=== PATIENT | female | born 1990 | race Caucasian/White ===

== ENCOUNTER 2017-02-19 03:03 | Emergency (ER) | payer BC ==
[2017-02-19 03:29] VITALS: TEMP 98.4
--- NOTE | 2017-02-19 04:07 | ED PDOC ---
HPI: Neurologic - General Time Seen by Provider: 02/19/17 03:27 Chief Complaint (Nursing): Dizziness/Lightheaded - History of Present Illness Allergies/Adverse Reactions: Allergies No Known Allergies Allergy (Verified 02/19/17 03:26) Past Medical History Vital Signs: Last Vital Signs Temp 98.4 F 02/19/17 03:27 Pulse 80 02/19/17 03:27 Resp 18 02/19/17 03:27 BP 110/68 02/19/17 03:27 Pulse Ox 100 02/19/17 03:27 - Medical History PMH: Hypothyroidism Denies: Chronic Kidney Disease - Allergies Allergies/Adverse Reactions: Allergies Allergy/AdvReac Type Severity Reaction Status Date / Time No Known Allergies Allergy Verified 02/19/17 03:26 - ECG O2 Sat by Pulse Oximetry: 100
--- NOTE | 2017-02-19 04:09 | ED PDOC ---
HPI: General Adult Time Seen by Provider: 02/19/17 03:27 Chief Complaint (Nursing): Dizziness/Lightheaded Chief Complaint (Provider): Anxiety, dizziness History Per: Patient History/Exam Limitations: no limitations Onset/Duration Of Symptoms: Mins Have you had recent travel within the past 21 days to any of the following countries: [place], [place], [place] or [place]?: No Current Symptoms Are (Timing): Still Present Severity: Moderate Additional History Per: Patient Additional Complaint(s): The pt is a 26yo female with PMHx of anxiety, hypothyroidsm, presents to the ED for evaluation of dizziness and anxiety prior to arrival. Pt reports she felt as if she were to pass out. Pt reports she took 0.5 mg Ativan at home because she thought her symptoms were due to a panic attack. Pt reports she woke up with numb arms and states her heart was "pounding" and felt her hands were "heavy" and overall felt "foggy". of note, pt reports she has been using control pills for the last 10 years. She denies any leg pain, nausea, vomiting, diarrhea, cough, abdominal pain or headache. She currently denies any other medical complaints. PMD: Dr. Crisostomo Against Medical Advice - AMA Patient Left Against Medical Advice: The patient declines admission to the hospital and wishes to leave the Emergency Department. This action is against my medical advice. This decision was made with informed refusal. The patient was told that admission to the hospital is necessary. Explanation of the reasons why were discussed. The risks of leaving were explained to the patient and include, but are not limited to, worsening of known or currently unknown conditions, permanent disability and from undiagnosed or untreated conditions. The patient has the capacity to make this informed decision and understands my explanation of the current medical problem and risks of leaving. The patient voluntarily accepts these risks and signed an AMA form documenting our conversation. The patient was given the opportunity to ask questions and reconsider. The patient was encouraged to return to the Emergency Department at any time for further care. Past Medical History Reviewed: Historical Data, Nursing Documentation, Vital Signs Vital Signs: Last Vital Signs Temp 98.4 F 02/19/17 03:27 Pulse 78 02/20/17 15:46 Resp 16 02/19/17 07:00 BP 114/67 02/19/17 07:00 Pulse Ox 100 02/20/17 15:46 - Medical History PMH: Anxiety, Hypothyroidism Denies: Chronic Kidney Disease - Surgical History Other surgeries: laprascopic surgery for endometriosis - Family History Family History: States: Unknown Family Hx - Living Arrangements Living Arrangements: With Friends/Others - Allergies Allergies/Adverse Reactions: Allergies Allergy/AdvReac Type Severity Reaction Status Date / Time No Known Allergies Allergy Verified 02/19/17 03:26 Review of Systems ROS Statement: Except As Marked, All Systems Reviewed And Found Negative Cardiovascular: Positive for: Other (heart was "pounding") Gastrointestinal: Negative for: Nausea, Vomiting, Abdominal Pain, Diarrhea Skin: Negative for: Rash Neurological: Positive for: Numbness, Dizziness Psych: Positive for: Anxiety Physical Exam - Reviewed Nursing Documentation Reviewed: Yes Vital Signs Reviewed: Yes - Physical Exam Appears: Positive for: Well, Non-toxic, No Acute Distress, Uncomfortable Head Exam: Positive for: ATRAUMATIC, NORMAL INSPECTION, NORMOCEPHALIC Skin: Positive for: Normal Color, Warm, Dry Eye Exam: Positive for: Normal appearance, EOMI, PERRL Neck: Positive for: Normal, Supple Cardiovascular/Chest: Positive for: Regular Rate, Rhythm Respiratory: Positive for: Normal Breath Sounds. Negative for: Respiratory Distress Gastrointestinal/Abdominal: Positive for: Normal Exam, Soft. Negative for: Tenderness Neurologic/Psych: Positive for: Alert, Oriented, Mood/Affect (anxious) - Laboratory Results Result Diagrams: 02/19/17 04:25 02/19/17 04:25 - ECG ECG: Positive for: Interpreted By Me, Viewed By Me ECG Rhythm: Positive for: Normal QRS, Normal ST Segment, Sinus Rhythm. Negative for: ST/T Changes Rate: 78 O2 Sat by Pulse Oximetry: 100 Pulse Ox Interpretation: Normal Medical Decision Making Medical Decision Making: Time: 040 Impression: Cardiac arrhythmia, anxiety, less likely ACS, r/o blood clots Plan: -- BMP -- Troponin -- CBC -- DDimer -- TSH --Reassess Time: 05 Pt informed that DDimer results will take more time, was informed she can have a CT scan done instead. Pt refuses CT scan and wishes to wait for DDimer results. Scribe Attestation: Documented by Ronel Whitmore acting as a scribe for Alessia Schofield MD. Provider Attestation: All medical record entries made by the Cydneyibe were at my direction and personally dictated by me. I have reviewed the chart and agree that the record accurately reflects my personal performance of the history, physical exam, medical decision making, and the department course for this patient. I have also personally directed, reviewed, and agree with the discharge instructions and disposition. Disposition - Clinical Impression Clinical Impression: Dizziness - Patient ED Disposition Is Patient to be Admitted: No Doctor Will See Patient In The: Office Counseled Patient/Family Regarding: Studies Performed, Diagnosis, Need For Followup - Disposition Referrals: [facility] [Outside] Disposition: Against Medical Advice Disposition Time: 07:00 Condition: FAIR Additional Instructions: Return for worsening. Follow up with your PCP in 2-3 days. Instructions: Dizziness (ED)
[2017-02-19 04:32] LABS: BASO # 0.1 K/uL (0.0-0.2); BASO % 0.8 % (0.0-2.0); EOS # 0.2 K/uL (0.0-0.7); HEMATOCRIT 38.5 % (34.0-47.0); LYMPH # 3.1 K/uL (1.0-4.3); LYMPH % 36.1 % (20.0-40.0); MEAN CELL VOLUME 88.5 fl (81.0-99.0); MEAN CORPUSCULAR HEMOGLOBIN 30.2 pg (27.0-31.0); MEAN CORPUSCULAR HGB CONC 34.1 g/dL (33.0-37.0); MEAN PLATELET VOLUME 8.3 fl (7.2-11.7); MONO # 0.6 K/uL (0.0-0.8); MONO % 6.4 % (0.0-10.0); NEUT # 4.7 K/uL (1.8-7.0); NEUT % 54.7 % (50.0-75.0); NRBC % 0.1 % (0.0-0.0); RED CELL DISTRIBUTION WIDTH 12.3 % (11.5-14.5); WHITE BLOOD COUNT 8.6 K/uL (4.8-10.8)
[2017-02-19 04:37] LABS: BLOOD UREA NITROGEN 14 mg/dl (7-17); CALCIUM 9.3 mg/dL (8.4-10.2); CARBON DIOXIDE 26 mmol/L (22-30); CHLORIDE 102 mmol/L (98-107); GFR AFRICAN-AMERICAN > 60; GLUCOSE,RANDOM 94 mg/dL (65-105); POTASSIUM 3.7 MMOL/L (3.6-5.0); SODIUM 142 mmol/l (132-148)
[2017-02-19] MEDS ORDERED: Sodium Chloride 0.9% 1,000 ML IV STA (04:50)
[2017-02-19 05:08] LABS: THYROID STIMULATING HORMONE 4.07 mIU/ML (0.46-4.68)
[2017-02-19 07:01] VITALS: BP 114/67; RESP 16
--- NOTE | 2017-02-19 09:14 | CARD ---
APPROVED REPORT EKG Measurement Heart [id number] <Conclusion> Normal sinus rhythm Rightward axis-Possible(see below) Borderline ECG baseline artefact and possible arm lead reversal-recommend repeat to read correctly
[2017-02-20 15:47] VITALS: PULSE 78; O2SAT 100
== END 2017-02-19 07:16 | disposition left against medical advice (07) ==
LOC: H.ER 03:03
DX: R42 Dizziness and giddiness (principal); E03.9 Hypothyroidism, unspecified
CPT/HCPCS: 80048; 84443; 84484; 85025; 85378; 93005; 96360; 96361; 99283; J7040